=== PATIENT | female | born 1950 | race African-American/Black ===

== ENCOUNTER 2017-06-09 17:09 | Emergency (ER) | payer MEDICARE, MEDICAID ==
[~2017-06-09] VITALS: Ht 154.9 cm; Wt 117.9 kg
--- NOTE | 2017-06-09 18:57 | Emergency Room Report ---
History of Present Illness General Chief Complaint: General Complaint Source: Patient (Cherry Ng) Present Illness HPI 67-year-old female presents to the emergency department complaining of an episode of chest tightness and feeling lightheaded and shaky for approximately 20 minutes her last which resolved and she experienced only mild fatigue the rest of the day. 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 Patient denies history of anxiety. Patient denies sharp chest pain she states her that her chest felt tight and was difficult to take a deep breath. Denies numbness or tingling in the extremities. reports some palpitations during the episode. denies LOC. denies previous episodes. pt. repors normal yearly physical exams. denies fevers or chills. reports not eating regularly for "sometime" she denies PMHx. such as DM, anxiety , head trauma, significant changes in weight, night sweats, or anemia. (Cherry Ng) Allergies: Coded Allergies: SULFA (SULFONAMIDE ANTIBIOTICS) (Verified Allergy, Unknown, 06/09/17) Patient History Past Medical History: see triage record Past Surgical History: none Pertinent Family History: none Immunizations: UTD Reviewed Nursing Documentation: PMH: Agreed, PSxH: Agreed (Cherry Ng) Nursing Documentation-PMH Past Medical History: No Stated History (Cherry Ng) Review of Systems All Other Systems: negative except mentioned in HPI (Cherry Ng) Physical Exam Vital Signs Date Time Temp Pulse Resp B/P (MAP) Pulse Ox O2 Delivery O2 Flow Rate FiO2 06/09/17 17:15 98.4 93 18 164/99 98 Room Air Sp02 EP Interpretation: reviewed, normal General Appearance: no apparent distress, alert, GCS 15, non-toxic Head: normocephalic, atraumatic Eyes: bilateral eye normal inspection, bilateral eye PERRL ENT: hearing grossly normal, normal voice Neck: full range of motion, supple/symm/no masses Respiratory: chest non-tender, lungs clear, normal breath sounds, no wheezing, speaking full sentences Cardiovascular #1: regular rate, rhythm, no edema, normal capillary refill Gastrointestinal: non tender, soft, no pulsatile mass Rectal: deferred Genitourinary: normal inspection Musculoskeletal: back normal, gait/station normal, normal range of motion, non- tender Neurologic: alert, oriented x3, responsive, motor strength/tone normal, sensory intact, normal gait, speech normal, no pronator, grossly normal Skin: normal color, no rash, warm/dry, well hydrated (Cherry Ng) Medical Decision Making PA Attestation Dr. Timmons is my supervising Physician whom patient management has been discussed with. (Cherry Ng) Diagnostic Impression: Primary Impression: Chest pain Qualified Codes: R07.9 - Chest pain, unspecified Additional Impression: Hypoglycemia ER Course 67-year-old female presents to the emergency department complaining of an episode of chest tightness and feeling lightheaded and shaky for approximately 20 minutes her last which resolved and she experienced only mild fatigue the rest of the day. 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 Patient denies history of anxiety. Patient denies sharp chest pain she states her that her chest felt tight and was difficult to take a deep breath. Denies numbness or tingling in the extremities. reports some palpitations during the episode. denies LOC. denies previous episodes. pt. repors normal yearly physical exams. denies fevers or chills. reports not eating regularly for "sometime". example is she ate only one small meal today. she denies PMHx. such as DM, anxiety, head trauma, significant changes in weight, night sweats, or anemia. Ddx considered but are not limited to LA, pneumonia, contusion, costochondritis , PE, ACS, Shoulder strain, electrolyte abnormality. Chest wall contusion. aortic dissection. Vital signs: are WNL, pt. is afebrile, NAD, non-toxic in appearance. -no concerning neurological signs. ORDERS: - EK NSR -CBC: Unremarkable -CMP glucose low otherwise unremarkable, electrolytes ok -Troponins: 0.00 Negative CXR: Unremarkable CXR. -repeat accu-check after oral OJ and food.: 79 trending upward. ED INTERVENTIONS: - Pt. given OJ and sandwhich. D/w pt. to eat at regular intervals, if she is not eating regularly her sugar can drop and this could be the cause of her intermittent symptoms. d/w pt. to follow up with PMD. pt. will be given oral glucose tabs to keep in her purse. DISCHARGE: At this time pt. is stable for d/c to home. Will provide printed patient care instructions, and any necessary prescriptions. Care plan and follow up instructions have been discussed with the patient prior to discharge. Labs Test 06/09/17 18:40 06/09/17 20:00 White Blood Count 7.6 K/UL (4.8-10.8) Red Blood Count 4.80 M/UL (4.20-5.40) Hemoglobin 14.1 G/DL (12.0-16.0) Hematocrit 44.6 % (37.0-47.0) Mean Corpuscular Volume 93 FL (80-99) Mean Corpuscular Hemoglobin 29.3 PG (27.0-31.0) Mean Corpuscular Hemoglobin Concent 31.6 G/DL (32.0-36.0) Red Cell Distribution Width 12.4 % (11.6-14.8) Platelet Count 286 K/UL (150-450) Mean Platelet Volume 9.8 FL (6.5-10.1) Neutrophils (%) (Auto) 59.8 % (45.0-75.0) Lymphocytes (%) (Auto) 27.8 % (20.0-45.0) Monocytes (%) (Auto) 7.4 % (1.0-10.0) Eosinophils (%) (Auto) 3.3 % (0.0-3.0) Basophils (%) (Auto) 1.7 % (0.0-2.0) Urine Color Yellow Urine Appearance Clear Urine pH 6 (4.5-8.0) Urine Specific [place] 1.030 (1.005-1.035) Urine Protein Negative (NEGATIVE) Urine Glucose (UA) Negative (NEGATIVE) Urine Ketones 1+ (NEGATIVE) Urine Occult Blood Negative (NEGATIVE) Urine Nitrite Negative (NEGATIVE) Urine Bilirubin Negative (NEGATIVE) Urine Urobilinogen Normal MG/DL (0.0-1.0) Urine Leukocyte Esterase Negative (NEGATIVE) Troponin I 0.000 ng/mL (0.000-0.056) Sodium Level 142 MMOL/L (136-145) Potassium Level 4.0 MMOL/L (3.5-5.1) Chloride Level 105 MMOL/L (98-107) Carbon Dioxide Level 27 MMOL/L (21-32) Anion Gap 10 mmol/L (5-15) Blood Urea Nitrogen 12 mg/dL (7-18) Creatinine 0.9 MG/DL (0.55-1.30) Estimat Glomerular Filtration Rate > 60 mL/min (>60) Glucose Level 67 MG/DL (74-106) Calcium Level 9.1 MG/DL (8.5-10.1) Total Bilirubin 0.4 MG/DL (0.2-1.0) Aspartate Amino Transf (AST/SGOT) 18 U/L (15-37) Alanine Aminotransferase (ALT/SGPT) 14 U/L (12-78) Alkaline Phosphatase 102 U/L (46-116) Total Creatine Kinase 103 U/L (26-308) Creatine Kinase MB 1.4 NG/ML (0.0-3.6) Creatine Kinase MB Relative Index 1.3 Total Protein 8.8 G/DL (6.4-8.2) Albumin 4.0 G/DL (3.4-5.0) Globulin 4.8 g/dL Albumin/Globulin Ratio 0.8 (1.0-2.7) Labs Test 06/09/17 18:40 06/09/17 20:00 White Blood Count 7.6 K/UL (4.8-10.8) Red Blood Count 4.80 M/UL (4.20-5.40) Hemoglobin 14.1 G/DL (12.0-16.0) Hematocrit 44.6 % (37.0-47.0) Mean Corpuscular Volume 93 FL (80-99) Mean Corpuscular Hemoglobin 29.3 PG (27.0-31.0) Mean Corpuscular Hemoglobin Concent 31.6 G/DL (32.0-36.0) Red Cell Distribution Width 12.4 % (11.6-14.8) Platelet Count 286 K/UL (150-450) Mean Platelet Volume 9.8 FL (6.5-10.1) Neutrophils (%) (Auto) 59.8 % (45.0-75.0) Lymphocytes (%) (Auto) 27.8 % (20.0-45.0) Monocytes (%) (Auto) 7.4 % (1.0-10.0) Eosinophils (%) (Auto) 3.3 % (0.0-3.0) Basophils (%) (Auto) 1.7 % (0.0-2.0) Urine Color Yellow Urine Appearance Clear Urine pH 6 (4.5-8.0) Urine Specific [place] 1.030 (1.005-1.035) Urine Protein Negative (NEGATIVE) Urine Glucose (UA) Negative (NEGATIVE) Urine Ketones 1+ (NEGATIVE) Urine Occult Blood Negative (NEGATIVE) Urine Nitrite Negative (NEGATIVE) Urine Bilirubin Negative (NEGATIVE) Urine Urobilinogen Normal MG/DL (0.0-1.0) Urine Leukocyte Esterase Negative (NEGATIVE) Troponin I 0.000 ng/mL (0.000-0.056) Sodium Level 142 MMOL/L (136-145) Potassium Level 4.0 MMOL/L (3.5-5.1) Chloride Level 105 MMOL/L (98-107) Carbon Dioxide Level 27 MMOL/L (21-32) Anion Gap 10 mmol/L (5-15) Blood Urea Nitrogen 12 mg/dL (7-18) Creatinine 0.9 MG/DL (0.55-1.30) Estimat Glomerular Filtration Rate > 60 mL/min (>60) Glucose Level 67 MG/DL (74-106) Calcium Level 9.1 MG/DL (8.5-10.1) Total Bilirubin 0.4 MG/DL (0.2-1.0) Aspartate Amino Transf (AST/SGOT) 18 U/L (15-37) Alanine Aminotransferase (ALT/SGPT) 14 U/L (12-78) Alkaline Phosphatase 102 U/L (46-116) Total Creatine Kinase 103 U/L (26-308) Creatine Kinase MB 1.4 NG/ML (0.0-3.6) Creatine Kinase MB Relative Index 1.3 Total Protein 8.8 G/DL (6.4-8.2) Albumin 4.0 G/DL (3.4-5.0) Globulin 4.8 g/dL Albumin/Globulin Ratio 0.8 (1.0-2.7) (Cherry Ng) ER Course I have reviewed the PA's interpretation of Xray results and agree with findings. (Rae Timmons M.D.) EKG Diagnostic Results Rate: normal - 69 bp, Rhythm: NSR ST Segments: no acute changes ASA given to the pt in ED: No PA Scribe Text - EK BPM NSR - no acute ST changes reviewed by Dr. TIMMONS, this interpretation was scribed by YVETTE Ng (Cherry Ng) Chest X-Ray Diagnostic Results Chest X-Ray Diagnostic Results : Chest X-Ray Ordered: Yes # of Views/Limited/Complete: 1 View Indication: Shortness of Breath EP Interpretation: Yes PA Xray: Interpretation reviewed, by supervising MD, and agrees with findings. Interpretation: no consolidation, no effusion, no pneumothorax, no acute cardiopulmonary disease Impression: No acute disease Electronically Signed by: Cherry Ng PA-C (Cherry Ng) Last Vital Signs Date Time Temp Pulse Resp B/P (MAP) Pulse Ox O2 Delivery O2 Flow Rate FiO2 06/09/17 17:15 98.4 93 18 164/99 98 Room Air (Cherry Ng) Disposition: HOME, SELF-CARE Condition: Stable Scripts Dextrose (GLUCOSE) 4 Gm Tab.chew 4 GM PO PRN for Hypoglycemia, #12 TAB Prov: Cherry Ng 06/09/17 Referrals: NOT CHOSEN IPA/,REFERRING (PCP) Patient Instructions: Hypoglycemia, [id number] Additional Instructions: Take medications as directed. Follow up with a Primary Care Provider in 3-5 days, even if your symptoms have resolved. Recommend [employer] evaluation for poor compliance with daily meals. --Please review list of primary care clinics, if you do not already have a primary care provider Return sooner to ED if new symptoms occur, or current symptoms become worse. - Please note that this Emergency Department Report was dictated using [employer] administrator technology software, occasionally this can lead to erroneous entry secondary to interpretation by the dictation equipment. Cherry Ng Jun 09, 2017 18:57 Rae Timmons M.D. Jun 17, 2017 12:39
[2017-06-09 19:15] LABS: BASOPHILS % (AUTO) 1.7 % (0.0-2.0); EOSINOPHILS % (AUTO) 3.3 % (0.0-3.0); LYMPHOCYTES % (AUTO) 27.8 % (20.0-45.0); MEAN CORPUSCULAR HEMOGLOBIN 29.3 PG (27.0-31.0); MEAN CORPUSCULAR HGB CONC 31.6 G/DL (32.0-36.0); MEAN CORPUSCULAR VOLUME 93 FL (80-99); MEAN PLATELET VOLUME 9.8 FL (6.5-10.1); MONOCYTES % (AUTO) 7.4 % (1.0-10.0); NEUTROPHILS % (AUTO) 59.8 % (45.0-75.0); PLATELET COUNT 286 K/UL (150-450); RED CELL DISTRIBUTION WIDTH 12.4 % (11.6-14.8); WHITE BLOOD COUNT 7.6 K/UL (4.8-10.8)
[2017-06-09 19:28] LABS: KETONES,URINE 1+ (NEGATIVE); LEUKOCYTE ESTERASE ,URINE NEGATIVE (NEGATIVE); NITRITE,URINE NEGATIVE (NEGATIVE); PH,URINE 6 (4.5-8.0); PROTEIN,URINE NEGATIVE (NEGATIVE); UROBILINOGEN,URINE NORMAL MG/DL (0.0-1.0)
[2017-06-09 19:30] VITALS: BP 164/99
[2017-06-09 19:30] LABS: APPEARANCE,URINE CLEAR
[2017-06-09] MEDS ORDERED: Sodium Chloride 500ML 500 ML IV ONE (20:00)
[2017-06-09 20:44] LABS: ALANINE AMINOTRANSFERASE 14 U/L (12-78); ALBUMIN/GLOBULIN RATIO 0.8 (1.0-2.7); ANION GAP 10 mmol/L (5-15); ASPARTATE AMINO TRANSFERASE 18 U/L (15-37); CALCIUM 9.1 MG/DL (8.5-10.1); CARBON DIOXIDE 27 MMOL/L (21-32); CHLORIDE 105 MMOL/L (98-107); CKMB 1.4 NG/ML (0.0-3.6); CREATININE 0.9 MG/DL (0.55-1.30); GLOMERULAR FILTRATION RATE > 60 mL/min (>60); SODIUM 142 MMOL/L (136-145); TOTAL PROTEIN 8.8 G/DL (6.4-8.2)
[2017-06-09] MEDS ORDERED: GLUCOSE4 GM PO (21:03)
[2017-06-09 21:40] VITALS: BP 158/92
[2017-06-09 22:01] VITALS: BP 158/92
--- NOTE | 2017-06-10 09:55 | Diagnostic Imaging Report ---
Indication: Chest pain Technique: XRAY Chest 1v Comparison: None. Findings: The cardiomediastinal silhouette is normal. The lungs are clear. There is no evidence of pleural fluid. The bones are unremarkable. Impression: Normal chest.
--- NOTE | 2017-06-10 19:13 | Cardiology Report ---
APPROVED REPORT EKG Measurement Heart [id number] Sinus rhythm with marked sinus arrhythmia Otherwise normal ECG
== END 2017-06-09 22:01 | disposition home or self-care (01) ==
LOC: EMR 17:50
DX: R07.89 Other chest pain (principal); R42 Dizziness and giddiness; R53.83 Other fatigue
CPT/HCPCS: 36415; 71010; 80053; 81003; 82550; 82553; 82962; 84484; 85025; 93005; 96360; 99284